=== PATIENT | male | born 1935 | race Caucasian/White ===

== ENCOUNTER 2017-06-17 07:19 | Outpatient (CLI) | payer BC ==
[~2017-06-17] VITALS: Ht 174 cm; Wt 97.5 kg
--- NOTE | ~2017-06-17 | HEMODYNAMI ---
PATIENT:NANNETTE DIMAS MEDICAL RECORD: [id number] : 37 LOCATION:[facility] D.2119 ADMISSION DATE: 06/17/17 Generatedon:06/18/20179:43 Patient name: NANNETTE DIMAS Patient #: [id number] SSN: DO B: 1935 Date of study: 06/18/2017 Page: Of Hemodynamic Procedure Report Patient Data Patient Demographics Procedure consent was obtained First Name: NANNETTE Gender: Male Last Name: JUDIE : 1935 Patient #: [id number] Age: 81 year(s) Race: Additional ID: [id number] Contact details Address: [address] [place] [address] State: [place] City: [place] Zip code: [address] Past Medical History Performed procedures and imaging results Date Procedure Procedure Results Comments 05/07/2017 Stress testing Positive->Intermediate Fixed with SPECT MPI risk Inferior apically. Allergies: No known allergies Admission Admission Data Admission Date: 06/17/2017 Admission Time: 7:19 Room #: D.2119 Lab Results Lab Result Date: 06/17/2017 Lab Result Time: 7:50 Biochemistry Name Units Result Min Max BUN mg/dl 34 --(----)-* 7 18 Creatinine mg/dl 1.4 --(----)*- 0.6 1.3 CBC Name Units Result Min Max Hematocrit % 41.8 -*(----)-- 42 54 Hemoglobin g/dl 14.7 --(-*--)-- 13.5 17.5 Procedure Procedure Types Cath Procedure PCI Procedure Coronary Stent Initial Peripheral Cath Diagnostic Procedure Cath Peripheral Jabni-Xbpkmde-Pje-Off Peripheral vascular Intervention Stent Stent Iliac w/plasty Initial Procedure Description Procedure Date Procedure Date: 06/18/2017 Procedure Start Time: 8:54 Procedure End Time: 9:41 Procedure Staff Name Function Otoniel Wan MD Performing Physician Irma Concepcion RN Nurse Mulugeta Ballard RT Scrub Catrachito Vo RT Monitor Procedure Data Cath Procedure Fluoroscopy Diagnostic fluoroscopy Total fluoroscopy Time: 8.2 time: 8.2 min min Diagnostic fluoroscopy Total fluoroscopy dose: dose: 598.96 mGy 598.96 mGy Contrast Material Contrast Material Type Amount (ml) Isovue 300 120 Entry Location Entry Primary Successful Side Size Upsize 1 Upsize Entry Closure Otrega ccessful Closure Location (Fr) (Fr) 2 (Fr) Remarks Device Remarks Femoral Right 6 Fr 6 Fr Exoseal artery Short Mid-Length Estimated blood loss: 10 ml Diagnostic catheters Device Type Used For End Catheter Placement Diagnostic Infinity 5Fr Procedure 3DRC catheter Diagnostic Infinity 5Fr Procedure Pigtail catheter Procedure Medications Medication Administration Route Dosage Lidocaine 2% added to field 20 Heparin Flush Bag added to field 2 bags (1000units/500ml NS) Oxygen NC 3 l/min 0.9% NaCl I.V. 100 ml/hr Versed I.V. 1 mg Fentanyl I.V. 50 mcg Versed I.V. 1 mg Fentanyl I.V. 50 mcg Heparin Bolus I.V. 4000 units Versed I.V. 1 mg Versed I.V. 1 mg Versed I.V. 1 mg Integrilin (Bolus I.V. 7.3 ml 2mg/ml) Morphine I.V. 2 mg Morphine I.V. 2 mg Hemodynamics Rest HGB: 14.7 (g/dl) Heart Rate: 66 (bpm) Snapshots Pre Cath Intra NCS Post Cath Vital Signs Time Heart Resp SPO2 NIBP (mmHg) Rhythm Pain Sedation Rate (ipm) (%) Status Level (bpm) 8:25:32 68 19 99 184/96(157) NSR 0 (11) 10(A) , No pain 8:29:55 77 18 100 166/97(137) NSR 0 (11) 10(A) , No pain 8:34:14 77 16 100 148/93(126) NSR 0 (11) 10(A) , No pain 8:38:30 75 16 98 149/92(138) NSR 0 (11) 10(A) , No pain 8:42:42 81 14 100 136/88(101) NSR 0 (11) 10(A) , No pain 8:47:04 83 17 99 131/79(101) NSR 0 (11) 9(A) , No pain 8:51:18 76 14 100 119/84(106) NSR 0 (11) 9(A) , No pain 8:55:28 75 21 98 121/85(107) NSR 0 (11) 9(A) , No pain 8:59:44 79 18 99 105/80(99) NSR 0 (11) 9(A) , No pain 9:03:51 79 20 99 112/80(90) NSR 0 (11) 9(A) , No pain 9:08:06 65 14 99 118/73(106) NSR 0 (11) 9(A) , No pain 9:12:20 77 18 99 122/80(111) NSR 0 (11) 9(A) , No pain 9:17:35 78 17 99 173/107(140) NSR 0 (11) 9(A) , No pain 9:22:07 77 19 99 165/107(153) NSR 0 (11) 9(A) , No pain 9:26:36 86 24 99 180/109(144) NSR 0 (11) 10(A) , No pain 9:31:10 87 16 99 176/115(137) NSR 0 (11) 10(A) , No pain 9:35:39 82 21 99 171/111(149) NSR 0 (11) 10(A) , No pain 9:40:07 85 18 99 165/109(138) NSR 0 (11) 10(A) , No pain Medications Time Medication Route Dose Verified Delivered Reason Notes Eff ectiveness by by 8:08:58 Lidocaine 2% added 20ml Irma Irma used for to vial Jamey Jamey procedure field RN RN 8:09:10 Heparin Flush added 2 Irma Irma used for Bag to bags Jamey Jamey procedure (1000units/500ml field RN RN NS) 8:24:30 Oxygen NC 3 Irma Irma used for l/min Jamey Jamey company pilot RN 8:24:41 0.9% NaCl I.V. 100 Irma Irma used for ml/hr Jamey Jamey company pilot RN 8:45:08 Versed I.V. 1 mg Irma Irma for Jamey Jamey sedation RN RN 8:45:18 Fentanyl I.V. 50 Irma Irma for mcg Jamey Jamey sedation RN RN 8:49:14 Versed I.V. 1 mg Irma Irma for Jamey Jamey sedation RN RN 8:49:18 Fentanyl I.V. 50 Irma Irma for mcg Jamey Jamey sedation RN RN 8:53:01 Versed I.V. 1 mg Irma Irma for Jamey Jamey sedation RN RN 8:57:35 Versed I.V. 1 mg Irma Irma for Jamey Jamey sedation RN RN 8:58:09 Heparin Bolus I.V. 4000 Otoniel Irma Per verified units Savage TONEY [place] physician with dr. YSABEL wan 9:02:01 Versed I.V. 1 mg Irma Irma for Jamey Jamey sedation RN RN 9:30:09 Integrilin I.V. 7.3 Irma Irma Per 2.7ml (Bolus 2mg/ml) ml [facility] physician wasted RN RN 9:30:57 Morphine I.V. 2 mg Otoniel Irma for chest Savage Concepcion pain RN 9:35:16 Morphine I.V. 2 mg Otoniel Irma for chest Savage Concepcion pain tumblers supervisor Log Time Note 8:01:47 PCI Cath Status : Elective 8:02:33 Catrachito Vo RT(R) (CV) sent for patient. Start room use. 8:02:35 Time tracking: Regular hours 8:02:43 Plan of Care:Hemodynamics will remain stable., Cardiac rhythm will remain stable., Comfort level will be maintained., Respiratory function will remain adequate., Patient/ family verbilizes understanding of procedure., Procedure tolerated without complication., Recovers from procedure without complications.. 8:08:58 Lidocaine 2% 20ml vial added to field was administered by Irma Concepcion RN; used for procedure; 8:09:10 Heparin Flush Bag (1000units/500ml NS) 2 bags added to field was administered by Irma Concepcion RN; used for procedure; 8:16:33 H&P Date Dictated: 06/17/2017 Within 30 days and on chart.. 8:16:37 Lab results completed and on chart. 8:16:55 Patient allergic to No known allergies 8:17:42 Patient received from PCU to CCL 3 Alert and oriented. Tansferred to table in Supine position. 8:17:43 Warm blankets applied, and nat hugger turned on for patient comfort. 8:17:43 Correct patient and procedure confirmed by team. 8:17:44 Signed procedure consent form obtained from patient. 8:17:45 ECG and BP/O2 sat monitors applied to patient. 8:17:47 Pre-procedure instructions explained to patient. 8:17:47 Pre-op teaching completed and patient verbalized understanding. 8:17:49 Family in patients room. 8:17:50 Patient NPO since Midnight. 8:17:52 Is the patient allergic to Iodine/contrast media? No. 8:17:53 Is patient on blood thinner?Yes 8:17:55 ACC The patient was administered the following blood thiners within the last 24 hours: ACCPlavix 8:17:58 Patient diabetic? No. 8:18:00 Previous problem with sedation/anesthesia? No ? 8:18:00 Snore? Yes 8:18:02 Sleep apnea? Yes 8:18:26 Possible Sleep apnea. Pending Sleep study. 8:18:28 Deviated septum? No 8:18:28 Opens mouth fully? Yes 8:18:29 Sticks out tongue? Yes 8:18:31 Airway obstruction? No ? 8:18:32 Dentures? No ? 8:18:34 Patient pain scale 0/10 ?. 8:18:40 IV patent on arrival in left hand with 0.9% NaCl at O. 8:24:18 Vital chart was started 8:24:30 Oxygen 3 l/min NC was administered by Irma Concepcion RN; used for procedure; 8:24:41 0.9% NaCl 100 ml/hr I.V. was administered by Irma Concepcion RN; used for procedure; 8:27:59 Right groin area was prepped with chlora-prep and draped in sterile fashion 8:28:01 Alarms reviewed by R. N. 8:28:04 Sharps counted by scrub and verified by R.N. 8:31:05 Physician arrived 8:34:54 DR. WAN IN ROOM 2 8:37:29 Pre procedure: right dorsailis pedis pulse 1+ Palpable, but thready & weak; easily obliterated 8:40:06 Baseline sample Acquired. 8:40:12 Baseline sample Acquired. 8:40:16 Rhythm: sinus rhythm 8:40:18 Zero performed for pressure channel P1 8:40:22 Zero performed for pressure channel P1 8:40:48 Zero performed for pressure channel P1 8:40:50 Zero performed for pressure channel P1 8:40:53 Zero performed for pressure channel P1 8:40:57 Zero performed for pressure channel P1 8:41:13 Full Disclosure recording started 8:41:24 Baseline sample Acquired. 8:44:33 --------ALL STOP TIME OUT------ 8:44:34 Final Timeout: patient, procedure, and site verified with staff and physician. All members of the team are in agreement. 8:44:36 Right groin site verified by team. 8:44:40 Physical assessment completed. ASA score P 2 - A patient with mild systemic disease as per Otoniel Wan MD. 8:44:44 Sedation plan: IV Moderate Sedation Versed, Fentanyl 8:45:08 Versed 1 mg I.V. was administered by Irma Concepcion RN; for sedation; 8:45:18 Fentanyl 50 mcg I.V. was administered by Irma Clearyor RN; for sedation; 8:49:14 Versed 1 mg I.V. was administered by Irma Clearyor RN; for sedation; 8:49:18 Fentanyl 50 mcg I.V. was administered by Irma Concepcion RN; for sedation; 8:53:01 Versed 1 mg I.V. was administered by Irma Concepcion RN; for sedation; 8:54:29 Use device set Femoral Dx 8:54:31 Acist Syringe opened to sterile field. 8:54:32 Bag Decanter opened to sterile field. 8:54:36 Medline Cath Pack opened to sterile field. 8:54:38 St Roby 260cm J .035 wire opened to sterile field. 8:54:39 Acist Hand Control opened to sterile field. 8:54:40 Acist Manifold opened to sterile field. 8:54:43 Tegaderm 4 x 4 opened to sterile field. 8:54:51 Procedure started. 8:54:58 Local anesthetic to right femoral artery with Lidocaine 2% by Otoniel Wan MD.INITIAL ACCESS ONLY 8:55:19 Grant BasixCompak Inflation Kit opened to sterile field. 8:55:20 Gruber Whisper J 300cm 0.014 guide wire opened to sterile field. 8:55:32 Cordis 6FR XBLAD 4.0 guide catheter opened to sterile field. 8:56:19 A 6 Fr Short sheath was inserted into the Right Femoral artery 8:56:42 TROUBLE ADVANCING J WIRE, TERUMO GLIDE OPENED AND ADVANCED 8:57:17 Terumo Super Stiff Angled 260cm glide wire opened to sterile field. 8:57:34 A Diagnostic Infinity 5Fr 3DRC catheter was advanced over the wire and used for Procedure. 8:57:35 Versed 1 mg I.V. was administered by Irma Concepcion RN; for sedation; 8:58:09 Heparin Bolus 4000 units I.V. was administered by Irma Concepcion RN; Per physician; verified with dr. wan 8:58:58 WIRE PASSED 8:59:06 Catheter removed. 8:59:16 6 Fr XBLAD 4 guide catheter was inserted over the wire 9:01:17 WHISPER wire advanced. 9:01:33 Wire advanced across lesion. 9:02:01 Versed 1 mg I.V. was administered by Irma Concepcion RN; for sedation; 9:03:24 Inflation number: 1 A Mozec Rx 3.5 x 14 balloon was prepped and advanced across the Prox CX, then inflated to 11 BLANCA for 0:10 (min:sec). 9:04:16 Balloon removed over the wire. 9:06:05 Inflation Number: 2 A Ogden OTW 3.0 x 08 stent was prepped and advanced across the Prox CX. The stent was deployed at 21 BLANCA for 0:10 (min:sec). 9:06:27 Stent catheter was removed intact over wire. 9:06:28 Wire removed. 9:06:29 Guide catheter removed. 9:08:10 Sheath upsized to a 6 Fr Mid-Length. 9:10:48 Cordis 6Fr Brite Tip 35cm Sheath opened to sterile field. 9:10:54 A Diagnostic Infinity 5Fr Pigtail catheter was advanced over the wire and used for Procedure. 9:11:25 Abdominal Aortagram was performed. 9:11:58 Left leg runoff performed. 9:12:25 Right leg runoff performed. 9:12:42 ILIAC DISEASE 9:12:57 Catheter removed. 9:15:54 Procedure type changed to Cath procedure, PCI procedure, Coronary Stent Initial, Peripheral Cath Diagnostic Procedure, Cath Peripheral, Qaqgp-Sisfxqb-Vsn-Off, Peripheral vascular Intervention, Stent, Stent Iliac w/plasty Initial 9:17:44 Inflation number: 1 A Cordis Powerflex Pro 7.0 x 20 x 135 cm balloon was prepped and advanced across the Mid Common Iliac, Right, then inflated to 9 BLANCA for 0:10 (min:sec). 9:17:49 Balloon removed over the wire. 9:19:01 Inflation Number: 2 A Cordis Sarahy 6 x 29 x 135 stent was prepped and advanced across the Mid Common Iliac, Right. The stent was deployed at 11 BLANCA for 0:10 (min:sec). 9:20:02 Stent catheter was removed intact over wire. 9:20:06 Wire removed. 9:20:55 Cordis 6Fr Exoseal opened to sterile field. 9:21:07 Sheath removed intact; hemostasis achieved with Exoseal to the Right Femoral artery. 9:21:11 Procedure ended.(Physican Out) 9:21:24 Fluoroscopy time 08.20 minutes. 9:21:34 Flurop Dose total: 598.96 9:21:34 Fluoroscopy dose: 598.96 mGy 9:21:40 Contrast amount:Isovue 300 120ml. 9:21:42 Sharps counted by scrub and verified by R.N. 9:24:16 Insertion/operative site no bleeding no hematoma. 9:24:20 Post-op/insertion site Right Femoral artery dressed using a 4 x 4 and Tegaderm. 9:24:39 Post right femoral artery:stable 9:27:[address] ELEVATION IN LEAD 1, DR. WAN NOTIFIED 9:30:09 Integrilin (Bolus 2mg/ml) 7.3 ml I.V. was administered by Irma Concepcion RN; Per physician; 2.7ml wasted 9:30:57 Morphine 2 mg I.V. was administered by Irma Concepcion RN; for chest pain; 9:31:44 Post Procedure Pulses reassessed and unchanged 9:31:54 Post-procedure physical assessment completed. ASA score P 2 - A patient with mild systemic disease as per Otoniel Wan MD. 9:35:16 Morphine 2 mg I.V. was administered by Irma Concepcion RN; for chest pain; 9:39:40 Estimated blood loss: 10 ml 9:39:59 Procedure and supply charges have been captured, reviewed, submitted and are correct. 9:41:34 Post procedure instruction explained to patient.Patient verbalizes understanding. 9:41:34 Patient needs reinforcement of post procedure teaching. 9:41:39 Vital chart was stopped 9:41:40 See physician's report for complete and final results. 9:41:43 Report given to PCU. 9:41:49 Patient transfered to PCU with Bed. 9:41:52 Procedure ended. 9:41:52 Full Disclosure recording stopped 9:41:57 End room use (Document Last) Intervention Summary Intervention Notes Time ActionType Lesion and Equipment Action# Pressure Duration Attributes Used 9:03:24 Inflate Prox CX Mozec Rx 1 11 00:10 balloon 3.5 x 14 balloon 9:06:05 Place stent Prox CX Ogden OTW 2 21 00:10 3.0 x 08 stent 9:17:44 Inflate Mid Common Cordis 1 9 00:10 balloon Iliac, Powerflex Right Pro 7.0 x 20 x 135 cm balloon 9:19:01 Place stent Mid Common Cordis 2 11 00:10 Iliac, Sarahy 6 Right x 29 x 135 stent Device Usage Item Name Manufacture Quantity Catalog Hospital Part Current Mini [facility] Lot# / Number Charge Number Stock Stock Serial# Code Acist Acist 1 82024 [id number] 323052 662679 20 Syringe [employer] Inc Bag Microtek 1 2001S 526666 11361 086015 5 Decanter [employer] Inc. Medline Cardinal 1 [id number] 329817 05416 240870 [address] [facility] [address] [facility] [address] Roby 1 094799 657152 613356 452323 30 260cm J .035 wire Acist Hand Acist 1 83291 528707 560416 010343 5 Control Medical Systems Inc Acist Acist 1 02486 648763 795636 646341 5 Manifold Medical Systems Inc Tegaderm 4 3M 1 1626W 067144 094473 099927 5 x 4 Merit Merit 1 PU2686 427373 388008 606818 15 [email or web address] Medical Inflation Kit Gruber Gruber 1 [id number] 162040 740001 165250 5 Whisper J Vascular 300cm 0.014 guide wire Cordis 6FR Cardinal 1 [id number] 380127 588893 630908 3 XBLAD 4.0 Health guide catheter Terumo Terumo 1 GT4896 687819 809332 144871 5 Super Stiff Angled 260cm glide wire Diagnostic Cardinal 1 [id number] 514206 422552 632000 9 Inspiration Biopharmaceuticalsity Health 5Fr 3DRC catheter Mozec Rx Cardinal 1 [id number] 612990 [id number] 245418 5 3.5 x 14 Health balloon Aaron OTW Medtronic 1 [id number] 561379 0393028 227847 5 [id number] 3.0 x 08 stent Cordis 6Fr Cardinal 1 [id number] 389582 351869 335744 1 Brite Tip Health 35cm Sheath Diagnostic Cardinal 1 [id number] 024526 752869 798296 5 Inspiration Biopharmaceuticalsity Health 5Fr Pigtail catheter Cordis Cardinal 1 [id number] 769970 122633 865993 5 Powerflex Health Pro 7.0 x 20 x 135 cm balloon Cordis Cardinal 1 [id number] 434098 028643 5 [id number] Sarahy 6 x Health 29 x 135 stent Cordis 6Fr Cardinal 1 EX600 622911 567324 824803 10 [facility] Health Signature Audit Grant Stage Time Signature Unsigned Intra-Procedure 06/18/2017 Catrachito Vo 9:42:53 AM RT(R) (CV) Signatures Monitor : Catrachito Vo RT Signature : Date : Time : [facility] [address] [place] [address]
--- NOTE | ~2017-06-17 | OP ---
PATIENT NAME: NANNETTE DIMAS MEDICAL RECORD: [id number] :37 LOCATION:D.M2 D.2119 ADMISSION DATE: SURGEON: LES EDWARDS MD DATE OF OPERATION: 06/18/2017 PROCEDURES: 1. PTCA stent left circumflex. 2. Selective coronary angiography. INDICATION: Angina and coronary artery disease. PROCEDURE IN DETAIL: After informed consent was obtained and after a detailed explanation of risks, benefits as well as alternative therapies, the patient elected to proceed with angiogram and angioplasty. The right femoral area had a preexisting sheath from peripheral intervention. All catheters exchanged through this sheath. FINDINGS: The left circumflex has a 90% stenosis proximally. This was addressed with a 3.0 x 8 mm [place] stent taken to 21 atmospheres. Result was 0% residual stenosis. OVERALL IMPRESSION: Successful percutaneous transluminal coronary angioplasty stent of the left circumflex going from 90% initial stenosis to 0% residual stenosis. TRANSINT:[id number] Voice Confirmation ID: [id number] DOCUMENT ID: [id number] LES EDWARDS MD CC: [id number] DICTATION DATE: 06/18/17930 NURSE COMPANION: 06/18/17940 REG [facility] [address] [place] [address]
--- NOTE | ~2017-06-17 | OP ---
PATIENT NAME: NANNETTE DIMAS MEDICAL RECORD: [id number] :36 LOCATION:D.M2 D.2119 ADMISSION DATE: SURGEON: LES EDWARDS MD DATE OF OPERATION: 06/18/2017 PROCEDURES: 1. Stent placement, iliac, right. 2. LEACH TANK TENDER, iliac, right. 3. Aortofemoral runoff. 4. Abdominal aortography. INDICATIONS: Claudication and peripheral vascular disease. PROCEDURE IN DETAIL: After informed consent was obtained and after detailed explanation of risks, benefits as well as alternative therapies, the patient elected to proceed with angiogram and angioplasty. The right femoral area was prepped and draped in normal sterile fashion. Right femoral artery was cannulated via modified Seldinger technique with placement of 6-Georgian sheath. All catheters exchanged through this sheath. FINDINGS: The abdominal aortography was performed. The catheter was pulled down for aortofemoral runoff. Abdominal aortography reveals no significant abdominal aortic disease. No dissection or aneurysm formation. No renal artery stenosis. RIGHT LEG: A. Iliac. The common iliac is widely patent. The external iliac has 75+ percent stenosis that is heavily calcified in the proximal vessel. The internal iliac is overall patent. B. Femoral system: The common superficial and deep femoral have nfap-dd-lwrkhnvg irregularities, but no flow-limiting stenosis. Overall patent. C. Popliteal and infrapopliteal vessels are patent with good 3-vessel runoff to the foot. LEFT LEG: A. Iliac: The common internal and external iliacs have uoew-eh-zfbnnlgp irregularities, but no flow-limiting stenosis. B. Femoral system: The common superficial and deep femoral have nsai-sf-zgqiofcg irregularities, but no flow-limiting stenosis. C. Popliteal and infrapopliteal vessels are widely patent with good 3-vessel runoff to the foot, although mildly diffusely diseased. LEACH TANK TENDER STENT OF THE RIGHT ILIAC: The balloon used was a 7 x 20 balloon which yielded suboptimal result with continued greater than 70% residual stenosis. Stenting was undertaken with a 7 x 29 Cordis Sarahy. Result was 0% residual stenosis. OVERALL IMPRESSION: Successful LEACH TANK TENDER stent of the right iliac going from 75% initial stenosis to 0% residual stenosis. TRANSINT:[id number] Voice Confirmation ID: [id number] DOCUMENT ID: [id number] OPERATIVE REPORT [id number] NANNETTE DIMAS LES EDWARDS MD CC: [id number] DICTATION DATE: 06/18/17929 [place]: 06/18/1751 REG [facility] [address] [place] [id number]
--- NOTE | ~2017-06-17 | OP ---
PATIENT NAME: NANNETTE DIMAS MEDICAL RECORD: [id number] :37 LOCATION:D.CAT ADMISSION DATE: SURGEON: LES EDWARDS MD DATE OF OPERATION: 06/17/2017 PROCEDURES: 1. PTCA stent LAD. 2. Left heart catheterization. 3. Selective coronary angiography. 4. Left ventriculogram. INDICATION: Angina and coronary artery disease. PROCEDURE IN DETAIL: After informed consent was obtained and after detailed explanation of risks, benefits as well as alternative therapies, the patient elected to proceed with angiogram and angioplasty. The right radial area was prepped and draped in normal sterile fashion. Right radial artery was cannulated via modified Seldinger technique with placement of 6-Maori sheath. All catheters exchanged through this sheath. FINDINGS: Left ventriculogram was performed in the standard 30-degree VIGIL view, reveals good cardiac wall motion throughout all segments. Overall ejection fraction estimated at 55%. SELECTIVE CORONARY ANGIOGRAPHY: 1. Left main is with no significant angiographic disease. 2. Left anterior descending has 85%-90% stenosis proximally. 3. Left circumflex has 90% stenosis proximally. 4. Right coronary is chronically totally occluded, distal vessel is diffusely diseased, nongraftable, it does fill via rxvp-fv-lvszn collaterals. PTCA STENT OF THE LAD: The stent used was a 3.0 x 22 mm [place]. Post-stent dilatation was made with a 3.5 balloon to 21 atmospheres. Result was 0% residual stenosis. OVERALL IMPRESSION: Successful percutaneous transluminal coronary angioplasty stent of the left anterior descending going from 90% initial stenosis to 0% residual stenosis. PLAN: PTCA stent of the left circumflex in the near future. TRANSINT:[id number] Voice Confirmation ID: [id number] DOCUMENT ID: [id number] LES EDWARDS MD CC: [id number] DICTATION DATE: 06/17/17922 MANAGEMENT ANALYST: 06/17/17936 [facility] [address] [place] [address]
--- NOTE | ~2017-06-17 | HP ---
PATIENT: NANNETTE DIMAS MEDICAL RECORD: [id number] ACCOUNT: [id number] LOCATION:MARY : 36 ADMISSION DATE: 06/17/17 HISTORY AND PHYSICAL EXAMINATION ADMITTING DIAGNOSES: 1. Angina. 2. Hypertension. 3. Family history of coronary artery disease. 4. Shortness of breath, dyspnea on exertion. HISTORY OF PRESENT ILLNESS: Mr. Dimas has had progressive anginal chest discomfort as well as shortness of breath, dyspnea on exertion. I actually never did a stress test on him. Nuclear stress test was performed, this was abnormal with inducible ischemia. He is now brought for cardiac catheterization. PHYSICAL EXAMINATION: GENERAL APPEARANCE: Well-nourished, well-developed, appears stated age. Level of distress, comfortable. PSYCHIATRIC: Mental status, alert, normal affect. Orientation, oriented to time, place and person. EYES: Lids and conjunctiva, noninjected. No discharge, no pallor. ENT: Lips, teeth, gums, normal dentition. Oropharynx, no cyanosis, no pallor. NECK: Carotid arteries, bilateral normal upstroke, no bruits, no thrills. JUGULAR VEINS: No jugular venous pressure or distention. CERVICAL LYMPH NODES: Nontender, nonenlarged. THYROID: Not enlarged. Nontender. No nodules. LUNGS: Respiratory effort, unlabored. CHEST: Normal curvature. No thoracic deformity. No chest wall tenderness. Percussion, resonant. Auscultation, clear. No wheezes, no rales, no rhonchi. CARDIOVASCULAR: Precordial exam, nondisplaced. No heaves or pericardial thrills. Rate and rhythm, regular. Heart sounds, normal S1, normal S2. No S3, no gallop, no rub. Systolic murmur, not heard. Diastolic murmur, not heard. EXTREMITIES: No cyanosis, no edema. Peripheral pulses, full and equal in all extremities, except as noted. No bruits appreciated. ABDOMEN: Soft, nondistended. Normal aorta. No bruit. Nontender. No masses. Liver, nontender, no hepatomegaly. Spleen, nontender, no splenomegaly. MUSCULOSKELETAL: No joint tenderness. No joint swelling. No erythema. NEUROLOGICAL: Normal gait, normal strength, normal tone. SKIN: Warm and dry. REVIEW OF SYSTEMS: The patient reports easy bruising but reports no swollen glands. The patient reports no fever, no night sweats, no significant weight gain, no significant weight loss. No significant exercise tolerance. The patient reports no dry eyes, no irritation, no vision change. Patient reports no difficulty hearing and no ear pain. Patient reports no frequent nose bleeds or nose and sinus problems. Patient reports on arm pain on exertion. No shortness of breath while lying down. No history of heart murmur. Patient reports no cough, no wheezing or coughing up blood. Patient reports no abdominal pain, no vomiting. Normal appetite. No diarrhea and not vomiting blood. No nausea and no constipation. Patient reports no incontinence. No difficulty urinating. No hematuria. No increased frequency. Patient reports no muscle aches. No weakness, no arthralgias, no back pain. No swelling of the extremities. Patient reports no abnormal mole, no jaundice, no rashes. Reports HISTORY AND PHYSICAL [id number] NANNETTE DIMAS no loss of consciousness. No weakness and no numbness. No seizures, dizziness, or headaches. The patient reports no depression, no sleep disturbance, feeling safe in a relationship and no alcohol abuse. Patient reports on fatigue. Reports no runny nose or sinus pressure. No itching, no hives, and no frequent sneezing. OVERALL IMPRESSION: Increasing anginal chest discomfort with abnormal nuclear stress test. He has a high likelihood of hemodynamically significant coronary artery disease. We will proceed with coronary angiography. Further care depends upon findings of the angiography. TRANSINT:[id number] Voice Confirmation ID: [id number] DOCUMENT ID: [id number] LES EDWARDS MD CC: [id number] DICTATION DATE: 06/17/17854 SUPERINTENDENT HORTICULTURE: 06/17/17919 [facility] [address] [place] [address]
--- NOTE | ~2017-06-17 | HEMODYNAMI ---
PATIENT:NANNETTE DIMAS MEDICAL RECORD: [id number] : 37 LOCATION:[facility] ADMISSION DATE: 06/17/17 Generatedon:06/17/20179:22 Patient name: NANNETTE DIMAS Patient #: [id number] SSN: DO B: 1935 Date of study: 06/17/2017 Page: Of Hemodynamic Procedure Report Patient Data Patient Demographics Procedure consent was obtained First Name: NANNETTE Gender: Male Last Name: JUDIE : 1935 Patient #: [id number] Age: 81 year(s) Race: Unknown Additional ID: [id number] Contact details [address]: [address] [place] [address] State: [place] City: [place] Zip code: [address] Past Medical History Performed procedures and imaging results Date Procedure Procedure Results Comments 05/07/2017 Stress testing Positive->Intermediate Fixed with SPECT MPI risk Inferior apically. Allergies: No known allergies Admission Admission Data Admission Date: 06/17/2017 Admission Time: 7:19 Lab Results Lab Result Date: 06/17/2017 Lab Result Time: 7:50 Biochemistry Name Units Result Min Max BUN mg/dl 34 --(----)-* 7 18 Creatinine mg/dl 1.4 --(----)*- 0.6 1.3 CBC Name Units Result Min Max Hematocrit % 41.8 -*(----)-- 42 54 Hemoglobin g/dl 14.7 --(-*--)-- 13.5 17.5 Procedure Procedure Types Cath Procedure Diagnostic Procedure LHC LHC w/Coronaries PCI Procedure Coronary Stent Initial Miscellaneous Procedures Moderate Sedation up to 30 minutes Procedure Description Procedure Date Procedure Date: 06/17/2017 Procedure Start Time: 9:01 Procedure End Time: 9:20 Procedure Staff Name Function Otoniel Wan MD Performing Physician Becky Moura RT Scrub Noah Worrell RT Scrub Anthony Davis RN Nurse Mluugeta Ballard RT Monitor Procedure Data Cath Procedure Fluoroscopy Diagnostic fluoroscopy Total fluoroscopy Time: 5.2 time: 5.2 min min Diagnostic fluoroscopy Total fluoroscopy dose: dose: 1029 mGy 1029 mGy Contrast Material Contrast Material Type Amount (ml) Isovue 300 124 Entry Location Entry Primary Successful Side Size Upsize Upsize Entry Closure Ortega ccessful Closure Location (Fr) 1 (Fr) 2 (Fr) Remarks Device Remarks Radial Right 6 Fr Mechanical artery Short Compression Estimated blood loss: 10 ml Diagnostic catheters Device Type Used For End Catheter Placement Diagnostic Terumo 5Fr Procedure [place] 110cm catheter Procedure Complications No complications Procedure Medications Medication Administration Route Dosage Oxygen NC 2 l/min Lidocaine 2% added to field 20 Heparin Flush Bag added to field 2 bags (1000units/500ml NS) 0.9% NaCl I.V. 100 ml/hr Versed I.V. 1 mg Fentanyl I.V. 50 mcg Versed I.V. 1 mg Fentanyl I.V. 50 mcg Radial Cocktail I.A. 1 syringe (Verapomil 2mg/Nitro 400mcg/Heparin 1500units) Heparin Bolus I.V. 4000 units Integrilin (Bolus I.V. 8.5 ml 2mg/ml) Plavix P.O. 600 mg Hemodynamics Rest HGB: 14.7 (g/dl) Heart Rate: 75 (bpm) Snapshots Pre Cath Intra NCS Post Cath Vital Signs Time Heart Resp SPO2 etCO2 LF7deya NIBP (mmHg) Rhythm Pain Sedation Rate (ipm) (%) (mmHg) (mmHg) Status Level (bpm) 8:51:02 75 20 100 0 0 125/78(115) NSR 0 (11) 10(A) , No pain 8:55:14 73 18 97 0 0 120/70(102) NSR 0 (11) 10(A) , No pain 8:59:22 71 17 97 0 0 113/80(99) NSR 0 (11) 10(A) , No pain 9:03:30 72 17 100 0 0 112/72(91) NSR 0 (11) 9(A) , No pain 9:07:38 73 17 97 0 0 105/67(89) NSR 0 (11) 9(A) , No pain 9:11:41 72 21 96 0 0 103/73(92) NSR 0 (11) 9(A) , No pain 9:15:47 72 15 99 0 0 107/66(80) NSR 0 (11) 9(A) , No pain 9:19:55 71 15 99 0 0 112/62(95) NSR 0 (11) 10(A) , No pain Medications Time Medication Route Dose Verified Delivered Reason Notes Effectiveness by by 8:53:08 Oxygen NC 2 l/min Otoniel Buffie used for Savage Davis RN procedure 8:53:15 Lidocaine 2% added 20ml Otoniel Buffie used for to vial Svaage Davis RN procedure field 8:53:22 Heparin Flush added 2 bags Otoniel Buffie used for Bag to Savage Davis RN procedure (1000units/500ml field NS) 8:53:32 0.9% NaCl I.V. 100 Otoniel Buffie Per physician ml/hr Savage Davis RN 8:56:09 Versed I.V. 1 mg Otoniel Cruz for sedation Savage Davis RN 8:56:15 Fentanyl I.V. 50 mcg Otoniel Cruz for sedation Savage Davis RN 9:02:44 Versed I.V. 1 mg Otoniel Cruz for sedation Savage Davis RN 9:02:48 Fentanyl I.V. 50 mcg Otoniel Cruz for sedation Savage Davis RN 9:02:55 Radial Cocktail I.A. 1 Otoniel Frederick for (Verapomil syringe Tauuziel Wan MD vasodilation 2mg/Nitro 400mcg/Heparin 1500units) 9:08:43 Heparin Bolus I.V. 4000 Otoniel Cruz for verif ied units Savage Davis RN anticoagulation with dr wan 9:10:45 Integrilin I.V. 8.5 ml Otoniel Cruz for waste d (Bolus 2mg/ml) Savage Davis RN antiplatelet 1.5 ml therapy of vial 9:20:52 Plavix P.O. 600 mg Otoniel Cruz for Savage Davis RN antiplatelet therapy Procedure Log Time Note 8:18:45 Informed consent obtained and on chart 8:19:09 Diagnostic Cath status Elective 8:19:11 Mulugeta MCADAMS(R) sent for patient. Start room use. 8:19:12 Time tracking: Regular hours 8:19:16 Plan of Care:Hemodynamics will remain stable., Cardiac rhythm will remain stable., Comfort level will be maintained., Respiratory function will remain adequate., Patient/ family verbilizes understanding of procedure., Procedure tolerated without complication., Recovers from procedure without complications.. 8:37:23 Patient received from Pre/Post Procedure Room to CCL 1 Alert and oriented. Tansferred to table in Supine position. 8:37:24 Warm blankets applied, and nat hugger turned on for patient comfort. 8:37:25 Correct patient and procedure confirmed by team. 8:37:25 ECG and BP/O2 sat monitors applied to patient. 8:50:00 Vital chart was started 8:50:02 Baseline sample Acquired. 8:50:06 Rhythm: sinus rhythm 8:50:08 Full Disclosure recording started 8:50:31 H&P Date Dictated: 06/17/2017 New H&P dictated by physician.. 8:51:15 Pre-procedure instructions explained to patient. 8:51:16 Pre-op teaching completed and patient verbalized understanding. 8:51:19 Family in waiting room. 8:51:20 Patient NPO since Midnight. 8:51:25 Patient allergic to No known allergies 8:51:27 Is the patient allergic to Iodine/contrast media? No. 8:51:28 Is patient on blood thinner?No 8:51:29 Patient diabetic? No. 8:51:32 Previous problem with sedation/anesthesia? No ? 8:51:34 Snore? Yes 8:51:35 Sleep apnea? Possible. Pending Sleep Study 8:51:55 Deviated septum? No 8:51:55 Opens mouth fully? Yes 8:51:56 Sticks out tongue? Yes 8:51:58 Airway obstruction? No ? 8:52:00 Dentures? No ? 8:52:01 Modified John's test Ulnar < 7 seconds 8:52:04 Patient pain scale 0/10 ?. 8:52:11 IV patent on arrival in left hand with 0.9% NaCl at [facility]. 8:52:53 Lab Result : BUN 34 mg/dl 8:52:53 Lab Result : Hemoglobin 14.7 g/dl 8:52:53 Lab Result : Creatinine 1.4 mg/dl 8:52:53 Lab Result : Hematocrit 41.8 % 8:52:55 Lab results completed and on chart. 8:52:58 Right Radial & Right Groin area was prepped with chlora-prep and draped in sterile fashion 8:52:59 Alarms reviewed by R. N. 8:53:00 Sharps counted by scrub and verified by R.N. 8:53:03 Use device set Radial Dx 8:53:04 MBrace Wrist Support opened to sterile field. 8:53:04 Tegaderm 4 x 4 opened to sterile field. 8:53:05 Acist Syringe opened to sterile field. 8:53:06 Medline Cath Pack opened to sterile field. 8:53:07 Bag Decanter opened to sterile field. 8:53:08 Oxygen 2 l/min NC was administered by Anthony Davis RN; used for procedure; 8:53:08 Acist Manifold opened to sterile field. 8:53:08 Acist Hand Control opened to sterile field. 8:53:09 St Roby 260cm J .035 wire opened to sterile field. 8:53:09 Terumo 6Fr Slender Glidesheath opened to sterile field. 8:53:15 Lidocaine 2% 20ml vial added to field was administered by Anthony Davis RN; used for procedure; 8:53:22 Heparin Flush Bag (1000units/500ml NS) 2 bags added to field was administered by Anthony Davis RN; used for procedure; 8:53:32 0.9% NaCl 100 ml/hr I.V. was administered by Anthony Davis RN; Per physician; 8:55:08 Physician arrived 8:55:09 --------ALL STOP TIME OUT------ 8:55:09 Final Timeout: patient, procedure, and site verified with staff and physician. All members of the team are in agreement. 8:55:11 Right Radial & Right Groin site verified by team. 8:55:13 Physical assessment completed. ASA score P 2 - A patient with mild systemic disease as per Otoniel Wan MD. 8:55:17 Sedation plan: IV Moderate Sedation Versed, Fentanyl 8:56:09 Versed 1 mg I.V. was administered by Anthony Davis RN; for sedation; 8:56:15 Fentanyl 50 mcg I.V. was administered by Anthony Davis RN; for sedation; 8:56:27 Zero performed for pressure channel P1 8:56:30 Zero performed for pressure channel P1 9:01:37 Procedure started. 9:01:40 Local anesthetic to right radial artery with Lidocaine 2% by Otoniel Wan MD.INITIAL ACCESS ONLY 9:01:47 A 6 Fr Short sheath was inserted into the Right Radial artery 9::44 Versed 1 mg I.V. was administered by Anthony Davis RN; for sedation; 9::48 Fentanyl 50 mcg I.V. was administered by Anthony Davis RN; for sedation; 9::55 Radial Cocktail (Verapomil 2mg/Nitro 400mcg/Heparin 1500units) 1 syringe I.A. was administered by Otoniel Wan MD; for vasodilation; 9:05:03 A Diagnostic [place] Homesumo 5Fr [place] 110cm catheter was advanced over the wire and used for Procedure. 9::34 LV gram done using VIGIL 9::36 Injector settings: Ml/sec: 5, Volume: 15, 9:05:41 EF : 55 % 9:05:58 LCA angiography performed. 9:07:11 RCA angiography performed. 9:07:24 Gruber VisEn Medicalisper J 300cm 0.014 guide wire opened to sterile field. 9:07:25 Enterra FeedixCompak Inflation Kit opened to sterile field. 9:07:25 Cordis 6FR XBLAD 3.5 guide catheter opened to sterile field. 9:07:27 Catheter removed. 9::40 6 Fr xblad 3.5 guide catheter was inserted over the wire 9::43 Heparin Bolus 4000 units I.V. was administered by Anthony Davis RN; for anticoagulation; verified with dr wan 9::40 LCA angiography performed. 9:09:50 whisper wire advanced. 9::45 Integrilin (Bolus 2mg/ml) 8.5 ml I.V. was administered by Anthony Davis RN; for antiplatelet therapy; wasted 1.5 ml of vial 9:11:07 Wire advanced across lesion. 9:12:19 Inflation number: 1 A Mozec Rx 3.0 x 14 balloon was prepped and advanced across the Mid LAD, then inflated to 11 BLANCA for 0:10 (min:sec). 9:12:41 Inflation number: 2 The Mozec Rx 3.0 x 14 balloon was reinflated across the Mid LAD, to 11 BLANCA for 0:10 (min:sec). 9::44 Balloon removed over the wire. 9:14:43 Inflation Number: 3 A Aaron OTW 3.0 x 22 stent was prepped and advanced across the Mid LAD. The stent was deployed at 19 BLANCA for 0:10 (min:sec). 9:14:53 Stent catheter was removed intact over wire. 9:16:53 Inflation number: 4 A NC Euphora 3.5 x 12 balloon was prepped and advanced across the Mid LAD, then inflated to 21 BLANCA for 0:10 (min:sec). 9:17:22 Balloon removed over the wire. 9:17:26 Wire removed. 9:17:26 Guide catheter removed. 9:17:56 Terumo TR Band Standard opened to sterile field. 9:18:02 Sheath removed intact; hemostasis achieved with Mechanical Compression to the Right Radial artery. 9:18:03 Procedure ended.(Physican Out) 9:18:11 Fluoroscopy time 05.20 minutes. 9:18:14 Flurop Dose total: 1029 9:18:14 Fluoroscopy dose: 1029 mGy 9:18:18 Contrast amount:Isovue 300 124ml. 9:18:19 Sharps counted by scrub and verified by R.N. 9:18:21 TR band inflated with 10cc of air. 9:18:22 Insertion/operative site no bleeding no hematoma. 9:18:29 Post right radial artery:stable, soft, clean and dry 9:18:31 Post Procedure Pulses reassessed and unchanged 9:18:34 Post-procedure physical assessment completed. ASA score P 2 - A patient with mild systemic disease as per Otoniel Wan MD. 9:18:37 Post procedure rhythm: unchanged. 9:18:39 Estimated blood loss: 10 ml 9:18:40 Post procedure instruction explained to patient.Patient verbalizes understanding. 9:18:41 Patient needs reinforcement of post procedure teaching. 9:18:53 Procedure type changed to Cath procedure, Diagnostic procedure, LHC, LHC w/Coronaries, PCI procedure, Coronary Stent Initial, Miscellaneous Procedures, Moderate Sedation up to 30 minutes 9:19:34 Procedure and supply charges have been captured, reviewed, submitted and are correct. 9:19:37 Procedure Complication : No complications 9:20:00 Vital chart was stopped 9:20:00 See physician's report for complete and final results. 9:20:02 Report given to PCU. 9:20:04 Patient transfered to PCU with Stretcher. 9:20:07 Procedure ended. 9:20:07 Full Disclosure recording stopped 9:20:33 End room use (Document Last) 9:20:52 Plavix 600 mg P.O. was administered by Anthony Davis RN; for antiplatelet therapy; Intervention Summary Intervention Notes Time ActionType Lesion and Equipment Action# Pressure Duration Attributes Used 9:12:19 Inflate Mid LAD Mozec Rx 1 11 00:10 balloon 3.0 x 14 balloon 9:12:41 Reinflate Mid LAD Mozec Rx 2 11 00:10 balloon 3.0 x 14 balloon 9:14:43 [address] stent Mid LAD Mindoro OTW 3 19 00:10 3.0 x 22 stent 9:16:53 Inflate Mid LAD NC 4 21 00:10 balloon Euphora 3.5 x 12 balloon Device Usage Item Name Manufacture Quantity Catalog Hospital Part Current Mini mal Lot# / Number Charge Number Stock Stock Serial# Code [place] [address] 140-0250-00 200272 12023 809620 5 Wrist Vascular Support Dynamics Tegaderm 4 3M 1 1626W 504600 674064 758046 5 x 4 Acist Acist 1 26534 252566 055968 353391 20 Syringe Medical Systems Inc Medline Cardinal 1 [id number] 300164 74789 606557 5 Cath Pack Health Bag Microtek 1 2002S 800440 22679 538877 5 Decanter Medical Inc. Acist Acist 1 98351 816440 687871 145723 5 Manifold Medical Systems Inc Acist Hand Acist 1 30024 928915 845944 448667 [address] Roby St Roby 1 943360 543591 718042 288902 30 260cm J .035 wire Terumo 6Fr Terumo 1 [id number] 381802 081425 261138 40 Slender Glidesheath Diagnostic Terumo 1 47-1503 930210 167322 521921 5 Terumo 5Fr [place] 110cm catheter Gruber Gruber 1 [id number] 589079 936437 438330 5 Whisper J Vascular 300cm 0.014 guide wire Merit Merit 1 HD7113 838302 986142 148909 15 Solaborate Medical Inflation Kit Cordis 6FR Cardinal 1 [id number] 642344 755072 617942 10 XBLAD 3.5 Health guide catheter Mozec Rx Cardinal 1 [id number] 208267 [id number] 689434 5 3.0 x 14 Health balloon Aaron OTW Medtronic 1 [id number] 853642 7750748 527100 5 [id number] 3.0 x 22 stent NC Euphora Medtronic 1 [id number] 629094 879536 037960 1 [id number] 3.5 x 12 balloon Terumo TR Terumo 1 [id number] 493979 780907 661031 40 Band Standard Signature Audit [place] Stage Time Signature Unsigned Intra-Procedure 06/17/2017 Mulugeta Ballard 9:22:12 AM RT(R) Signatures Monitor : Mulugeta Ballard RT Signature : Date : Time : [place] [id number] [place] [address]
[2017-06-17] MEDS ORDERED: ZESTRIL40 MG PO (07:31)
[2017-06-17] MEDS ORDERED: HYDROCHLOROTH12.5 M1 PO (07:31)
[2017-06-17 07:39] VITALS: BP 119/81; BMI 30.3
[2017-06-17 07:54] LABS: BASOPHILS 0.5 % (0-2); EOSINOPHILS 2.9 % (0-7); HEMATOCRIT 41.8 % (42.0-54.0); HEMOGLOBIN 14.7 g/dL (13.5-17.5); IMMATURE GRANULOCYTES 0.2 % (0-5); LYMPHOCYTES 28.6 % (15-50); MCH 31.9 pg (26.0-34.0); MCHC 35.2 g/dL (31.0-37.0); MCV 90.7 fL (80.0-100.0); MONOCYTES 9.4 % (2-11); NEUTROPHILS 58.4 % (40-80); PLATELET COUNT 165 10x3/uL (130-400); RBC 4.61 10x6/uL (4.20-6.10); RDW 12.9 % (11.5-14.5); WBC 5.8 10x3/uL (4.8-10.8)
[2017-06-17 08:23] LABS: ANION GAP 14.2 mmol/L (8-16); CALCIUM 8.7 mg/dL (8.5-10.1); CARBON DIOXIDE 23.8 mmol/L (21.0-32.0); CREATININE - SERUM 1.4 mg/dL (0.6-1.3)
--- NOTE | 2017-06-17 09:35 | NUR ---
REC'D PT FROM [facility] DEMONSTRATOR. 2L NC, NO RESP DISTRESS NOTED. RIGHT WRIST TR BAND CDI, NO BLEEDING OR HEMATOMA NOTED. NO C/O CHEST PAIN OR NAUSEA. VSS. INSTRUCTED PT NOT TO USE RIGHT WRIST.
--- NOTE | 2017-06-17 09:43 | NUR ---
REPORT CALLED TO NURSE ON MED II. TRANSFERRED TO ROOM 2118 VIA STRETCHER BY CATH SHOE RECONDITIONER.
--- NOTE | 2017-06-17 10:10 | NUR ---
RECEIVED PT FROM [facility]W OFFBEARER VIA BED AAOX4 RESP UNLABORED RT WRIST WITH TR BAND INTACT NO SIGNS OG BLEEDING PPP X4 TELEMETRY PLACED SR 78 VSS PT DENIES ANY NEEDS OR DISCOMFORT AT THIS TIME AT BEDSIDE
[2017-06-17 12:00] VITALS: BP 134/83
[2017-06-17 16:00] VITALS: BP 118/74
[2017-06-17 17:47] VITALS: BP 112/68; Ht 174 cm; Wt 97.5 kg
[2017-06-17 19:00] VITALS: BP 140/84
[2017-06-18 00:46] VITALS: BP 147/79
[2017-06-18 05:12] VITALS: BP 147/79
[2017-06-18 08:14] VITALS: BP 161/97
--- NOTE | 2017-06-18 10:35 | NUR ---
1015 CLONIDINE 0.1MG PO GIVEN PER DR. EDWARDS FOR SYSTOLIC BP. R GROIN REMAINS C/D/I WITH NO HEMATOMA OR BLEEDING.NSR RATE 71 W C/O CHEST PAIN. 01/20. WILL CONTINUE TO MONITOR CLOSELY.
--- NOTE | 2017-06-18 10:43 | NUR ---
R GROIN REMAINS C/D/I WITH NO HEMATOMA OR BLEEDING. NSR RATE 77. ST ELEVATION HAS DECREASED. DR. EDWARDS AT BEDSIDE.
--- NOTE | 2017-06-18 10:58 | NUR ---
PATIENT REMAINS NSR RATE 76, SYSTOLIC BP 144, CLONIDINE SEEMS TO HAVE WORKED. R GROIN REMAINS C/D/I WITH NO HEMATOMA. TRANSFERRED TO ROOM ON FLOOR VIA BED BY CATH TEAM.
--- NOTE | 2017-06-18 11:19 | NUR ---
ARRIVE BACK TO ROOM VIA BED FROM DRUG ENFORCEMENT AGENT. ALERT AND ORIENTED X4. AT BEDSIDE. COMPLAINS OF CHEST PAIN 11/22. MORPHINE GIVEN IN DRUG ENFORCEMENT AGENT HOLDING. BP-135/93, P-78, T-97.7, O2-100% WITH 2L NC. RT GROIN DRESSING CLEAN DRY INTACT. SMALL HEMATOMA NOTED. PULSES PALPABLE. CONTINUE PLAN OF CARE. BED LOCKED AND LOW. CALL LIGHT IN REACH. TWO SIDERAIL UP. REMAIN FLAT FOR 3 MORE HOURS.
[2017-06-18 12:05] VITALS: BP 135/93
[2017-06-18 16:00] VITALS: BP 110/71
--- NOTE | 2017-06-18 16:15 | NUR ---
ALERT AND ORIENTED X4. SITTING ON SIDE OF BED. COMPLAINS OF CHEST PAIN RADIATING TO BACK BETWEEN SHOULDER BLADES. SINUS RHTHYM 75bpm ON TELEMETRY. BP-121/80. DENIES SOB. STAYING OVER NIGHT TO MONITOR. PLAN TO DC TOMORROW 06/19/17. CONTINUE PLAN OF CARE. BED LOCKED AND LOW. CALL LIGHT IN REACH. DENIES ANY NEEDS AT THIS TIME.
[2017-06-18 19:00] VITALS: BP 134/80
--- NOTE | 2017-06-18 19:59 | NUR ---
RESUMED CARE OF PT, LYING IN BED RESPIRATIONS EVEN AND UNLABORED ON ROOM AIR. LEFT HAND SALINE LOCKED. 71 SR ON TELEMETRY. NO NEEDS AT THIS TIME. CALL LIGHT IN REACH. WILL CONTINUE TO MONITOR. SEE NURSE ASSESSMENT.
--- NOTE | 2017-06-19 00:30 | NUR ---
COMPLAINTS OF CHEST PAIN 5:10, 75 SR ON TELEMETRY. MORPHINE 4MG IVP GIVEN, WILL CONTINUE TO MONITOR. CALL LIGHT IN REACH.
[2017-06-19 01:15] VITALS: BP 129/81
--- NOTE | 2017-06-19 05:25 | NUR ---
LYING IN BED WITH EYES CLOSED, NO CHANGES FROM PREVIOUS ASSESSMENT.
[2017-06-19 07:00] VITALS: BP 117/78
--- NOTE | 2017-06-19 07:42 | NUR ---
ASSESSMENT DONE. DENIES NEEDS.
[2017-06-19] MEDS ORDERED: COLACE100 MG PO (10:02)
--- NOTE | 2017-06-19 11:14 | NUR ---
ASLEEP AT PRESENT. MONITOR SHOWS SR @ 90. WILL CONTINUE TO MONITOR.
[2017-06-19 12:42] VITALS: BP 126/84
[2017-06-19] MEDS ORDERED: PLAVIX75 MG PO (14:33)
[2017-06-19] MEDS ORDERED: BAYER CHEWABLE81 MG PO (14:34)
--- NOTE | 2017-06-19 15:18 | NUR ---
DC AND RX GIVEN TO PT
--- NOTE | 2017-06-19 15:21 | NUR ---
DC HOME PER PERSONALCAR
== END 2017-06-19 15:21 | disposition home or self-care (01) ==
LOC: D.M2 07:19 → D.CATH 07:19 → D.M2 09:45 → D.CLR 06-18 18:19 → D.M2 06-18 18:20 → D.CATH 06-19 15:21
PROVIDERS: Internal Medicine Interventional Cardiology
DX: I20.9 Angina pectoris, unspecified (principal); R94.30 Abnormal result of cardiovascular function study, unspecified; R06.02 Shortness of breath; Z01.812 Encounter for preprocedural laboratory examination; I70.213 Atherosclerosis of native arteries of extremities with intermittent claudication, bilateral legs

== ENCOUNTER → 2018-12-24 09:21 | Outpatient (CLI) | payer BC ==
[2017-06-17 17:47] VITALS: BMI 27.0
--- NOTE | ~2018-12-24 | ST ---
PATIENT:NANNETTE DIMAS MEDICAL RECORD: [id number] SEX: M LOCATION:[facility] ORDER #: ADMISSION DATE: 12/24/18 AGE OF PATIENT: 82 REFERRING PHYSICIAN: INTERPRETING PHYSICIAN: LES EDWARDS MD DATE OF SERVICE: 12/24/2018 Nuclear stress test. INDICATION: Angina, coronary artery disease, hypertension, shortness of breath. He was exercised on the standard Ralph protocol for 5 minutes, terminated due to achievement of maximum target heart rate response with 28 mCi of sestamibi injected at peak stress, 9 mCi used previously for rest images. FINDINGS: Gated SPECT reveals preserved ejection fraction at 52% with good wall motion and thickening and brightening throughout all segments. SPECT imaging Cardiolite was used as myocardial fusion agent. There is reversibility anteriorly and apically. This includes basal, mid apical, anterior segments as well as the apex itself. The degree of reversibility is severe. The amount of myocardium involved is moderate. OVERALL IMPRESSION: This is an abnormal nuclear stress test, a moderate amount of myocardium involved with inducible ischemia anteroapically and gated SPECT reveals preserved ejection fraction of greater than 50%. In this patient with ongoing symptomatology, the current scan does suggest presence of hemodynamically significant coronary artery disease. We would proceed with coronary angiography as followup study. TRANSINT:[id number] Voice Confirmation ID: [id number] DOCUMENT ID: [id number] LES EDWARDS MD CC: [id number] DICTATION DATE: 12/25/18 1610 MAINFRAME ANALYST: 12/26/18 0924 DEP CLI 12/24/18 [place] [id number] [place] [id number]
[~2018-12-24 09:21] MED LIST: BAYER CHEWABLE81 MG PO; COLACE100 MG PO; HYDROCHLOROTH12.5 M1 PO; PLAVIX75 MG PO; ZESTRIL40 MG PO
== END | disposition home or self-care (01) ==
LOC: D.HCCARDIO 09:21
PROVIDERS: ATTEND Internal Medicine Interventional Cardiology
DX: I20.9 Angina pectoris, unspecified (principal)

== ENCOUNTER → 2019-01-01 12:14 | Outpatient (CLI) | payer BC ==
[2017-06-17 17:47] VITALS: BMI 27.0
--- NOTE | ~2019-01-01 | EC ---
PATIENT:NANNETTE DIMAS DATE OF SERVICE: 01/01/19 SEX: M MEDICAL RECORD: [id number] DATE OF : 37 [facility] AGE OF PATIENT: 83 ADMISSION DATE: 01/01/19 REFERRING PHYSICIAN: INTERPRETING PHYSICIAN: LES WAN MD ECHOCARDIOGRAM REPORT ECHO CHARGES 4 ECHO COMPLETE Date: 01/01/19 CLINICAL DIAGNOSIS: SOB ECHOCARDIOGRAPHIC MEASUREMENTS (adult normal given) AC root (d.<3.7cm) 3.9 cm LV Septum d (<1.2 cm> 1.6 cm Valve Excursion 2.0 cm LV Septum (systole) 1.8 cm Left Atria (s.<4.0cm> 3.6 cm LVPW d(<1.2cm) 1.7 cm RV (d.<2.3cm) 4.0 cm LVPW (sytole) 1.8 cm LV diastole(<5.6CM) 5.6 cm MV E-F(>70mm/sec) cm LV systole 4.2 cm LVOT Diameter 2.0 cm MV exc.(>10mm) 1.3 cm Est.ejection fraction (50-75%) % DOPPLER: LVIT cm/sec A 90.0 cm/sec E 60.0 cm/sec LA cm/sec RVSP 42 mmHg LVOT 98 cm/sec AOP1/2T m/s Asc. Ao 123 cm/sec RVOT 71 cm/sec RA cm/sec PA 106 cm/sec AV Gradient Peak 6.07 mmHg AV Mean 2.85 mmHg AV Area 3.0 cm MV Gradient Peak 3.57 mmHg MV Mean 1.07 mmHg MV Area cm COMMENTS: Veterinary Epidemiologist: Sofy GRAVES Personal Care Service Provider: 1 Dr. Wan TAPE# PACS Pericardial Effusion N DATE OF SERVICE: 01/01/2019 PROCEDURE: Echocardiogram. FINDINGS: 1. Left ventricular chamber size is within normal limits. Left ventricular systolic function is normal. Overall ejection fraction 60% to 65%. 2. Left atrium, right atrium and right ventricular chamber sizes are within normal limits. 3. Valvular structures have normal structure and motion. ECHOCARDIOGRAM REPORT [id number] NANNETTE DIMAS 4. Doppler interrogation reveals mild aortic insufficiency, mild mitral regurgitation, mild tricuspid regurgitation, no other valvular insufficiency or stenosis. Pulmonary systolic pressure is estimated at 42 mmHg. 5. No evidence of pericardial effusion or left ventricular thrombus. TRANSINT:[id number] Voice Confirmation ID: [id number] DOCUMENT ID: [id number] LES WAN MD CC: [id number] DICTATION DATE: 01/04/19 1020 AUDIO VISUAL SPECIALIST: 01/04/19 1120 DEP CLI 01/01/19 [facility] [address] [id number]
[~2019-01-01 12:14] MED LIST changes: +PRAVACHOL40 MG PO
== END | disposition home or self-care (01) ==
LOC: D.HCCARDIO 12:14
PROVIDERS: ATTEND Internal Medicine Interventional Cardiology
DX: I25.10 Atherosclerotic heart disease of native coronary artery without angina pectoris (principal)

== ENCOUNTER 2019-01-04 08:21 | Outpatient (CLI) | payer BC ==
[~2019-01-04] VITALS: Ht 174 cm; Wt 90.9 kg
--- NOTE | ~2019-01-04 | OP ---
PATIENT NAME: NANNETTE DIMAS MEDICAL RECORD: [id number] :37 LOCATION:D.CAT ADMISSION DATE: SURGEON: LES EDWARDS MD DATE OF OPERATION: 01/04/2019 PROCEDURES: 1. PTCA stent left circumflex. 2. PTCA stent LAD. 3. Left heart catheterization. 4. Selective coronary angiography. 5. Left ventriculogram. INDICATION: Angina and coronary artery disease. PROCEDURE IN DETAIL: After informed consent was obtained and after a detailed description of the risks, benefits as well as alternative therapies, the patient elected to proceed with angiogram and angioplasty. The right radial area was prepped and draped in normal sterile fashion. Right radial artery was cannulated via modified Seldinger technique with placement of 6-Korean sheath. All catheters exchanged through this sheath. FINDINGS: Left ventriculogram was performed in standard 30-degree VIGIL view, reveals good cardiac wall motion throughout all segments. Overall ejection fraction estimated at 55% to 60%. SELECTIVE CORONARY ANGIOGRAPHY: 1. Left main showed no significant angiographic disease. 2. Left anterior descending has a previously placed stent with 90% in-stent restenosis. 3. Left circumflex has 75% stenosis in the mid vessel. 4. Right coronary artery is chronically totally occluded. Distal right coronary artery fills via left to right collaterals. This is unchanged from previous angiography. PTCA STENT OF THE LAD: The stent used was a 2.75 x 12 mm Poca. This still had quite a significant residual. The post-stent dilatation made with a 3.0 and 3.5 high pressure balloon and a 3.5 high pressure balloon was taken to 25 atmospheres. There was still a 40% to 50% residual stenosis. No angiographic evidence of dissection or thrombus. PTCA STENT OF THE LEFT CIRCUMFLEX: The left circumflex was addressed with a 3.0 x 22 mm Poca. Result was 0% residual stenosis. OVERALL IMPRESSION: Successful PTCA stent of the LAD and circumflex. The circumflex going from 75% initial stenosis to 0% residual. The LAD only going to 40% to 50% residual stenosis. This could not be improved even with large high pressure balloons. If this continues to cause angina, the only treatment would be coronary bypass graft surgery. TRANSINT:[id number] Voice Confirmation ID: [id number] DOCUMENT ID: [id number] OPERATIVE REPORT [id number] DIMAS,LES VELASQUEZ MD CC: [id number] DICTATION DATE: 01/04/19 1119 TOOL AND DIE MAKER APPRENTICE: 01/04/19 1224 [facility] [address] [id number]
--- NOTE | ~2019-01-04 | HEMODYNAMI ---
PATIENT:NANNETTE DIMAS MEDICAL RECORD: [id number] : 37 LOCATION:[facility] ADMISSION DATE: 01/04/19 Generatedon:01/04/201911:17 Patient name: NANNETTE DIMAS Patient #: [id number] SSN: DO B: 1935 Date of study: 01/04/2019 Page: Of Hemodynamic Procedure Report Patient Data Patient Demographics Procedure consent was obtained First Name: NANNETTE Gender: Male Last Name: JUDIE : 1935 [facility] Initial: NICOL Age: 83 year(s) Patient #: [id number] Race: Additional ID: [id number] Contact details Address: [address] [place] [address] State: [place] City: [place] Zip code: [address] Past Medical History Allergies: No known allergies Admission Admission Data Admission Date: 01/04/2019 Admission Time: 8:21 Admit Source: Other Procedure Procedure Types Cath Procedure Diagnostic Procedure LHC LHC w/Coronaries Sedation Charges Moderate Sedation up to 15 minutes PCI Procedure Coronary Stent Coronary Stent Initial x2 Procedure Description Procedure Date Procedure Date: 01/04/2019 Procedure Start Time: 10:53 Procedure End Time: 11:17 Procedure Staff Name Function Otoniel Wan MD Performing Physician Martine Dowd RT Monitor Sarah Lunsford RN Nurse Mayco Bedoya RT Scrub Procedure Data Cath Procedure Fluoroscopy Diagnostic fluoroscopy Total fluoroscopy Time: 7.6 time: 7.6 min min Diagnostic fluoroscopy Total fluoroscopy dose: dose: 1637 mGy 1637 mGy Contrast Material Contrast Material Type Amount (ml) Isovue 300 152 Entry Location Entry Primary Successful Side Size Upsize Upsize Entry Closure Ortega ccessful Closure Location (Fr) 1 (Fr) 2 (Fr) Remarks Device Remarks Radial Right 6 Fr Mechanical artery Short Compression Estimated blood loss: 5 ml Diagnostic catheters Device Type Used For End Catheter Placement DIAGNOSTIC [place] 110cm 5 Multi-vessel Fr catheter ([id number]) Angiography DIAGNOSTIC AR2 MOD 5 Fr Right Coronary catheter ([id number]) Angiography Procedure Complications No complications Procedure Medications Medication Administration Route Dosage 0.9% NaCl I.V. 100 ml/hr Oxygen etCO2 Nasal cannula 2 l/min Lidocaine 2% added to field 20 Heparin Flush Bag added to field 2 bags (1000units/500ml NS) Radial Cocktail added to field 1 syringe (Verapomil 2mg/Nitro 400mcg/Heparin 1500units) Versed I.V. 2 mg Fentanyl I.V. 50 mcg Versed I.V. 1 mg Fentanyl I.V. 25 mcg Heparin Bolus I.V. 4000 units Hemodynamics Rest Heart Rate: 73 (bpm) Pressure Samples Time Site Value (mmHg) Purpose Heart Use Rate(bpm) 10:55 LV 93/59,47 Snapshot 76 Snapshots Pre Cath Intra NCS Post Cath Vital Signs Time Heart Resp SPO2 etCO2 NIBP (mmHg) Rhythm Pain Sedation Rate (ipm) (%) (mmHg) Status Level (bpm) 10:41:39 67 13 98 27.8 115/80(98) NSR 0 (11) 10(A) , No pain 10:45:57 75 16 96 23 126/74(112) NSR 0 (11) 10(A) , No pain 10:50:11 74 16 98 19 101/71(81) NSR 0 (11) 10(A) , No pain 10:54:23 76 17 97 22.5 97/67(80) NSR 0 (11) 9(A) , No pain 10:58:35 77 20 98 12.7 80/62(75) NSR 0 (11) 9(A) , No pain 11:02:38 75 16 97 24 96/61(71) NSR 0 (11) 9(A) , No pain 11:06:48 70 16 96 24.8 90/60(73) NSR 0 (11) 9(A) , No pain 11:10:58 74 16 96 17.3 94/59(82) NSR 0 (11) 9(A) , No pain 11:15:06 73 15 96 21 105/67(81) NSR 0 (11) 10(A) , No pain Medications Time Medication Route Dose Verified Delivered Reason Not es Effectiveness by by 10:39:24 0.9% NaCl I.V. 100 Otoniel Smith used for ml/hr Savage Lunsford casino controller 10:39:32 Oxygen etCO2 2 l/min Otoniel Sarah used for Nasal Savage Lunsford procedure cannula RN 10:39:36 Lidocaine 2% added 20ml Otonielsummer Frederick for local to vial Savage Wan MD anesthetic field 10:39:41 Heparin Flush added 2 bags Otoniel Millerrey used for Bag to Savage Wan MD procedure (1000units/500ml field NS) 10:43:21 Radial Cocktail added 1 Otoniel Otoniel used for (Verapomil to syringe Savage Wan MD procedure 2mg/Nitro field 400mcg/Heparin 1500units) 10:47:30 Versed I.V. 2 mg Otoniel Sarah for sedation Savage Lunsford RN 10:47:35 Fentanyl I.V. 50 mcg Otoniel Sarah for sedation Savage Lunsford RN 10:52:08 Versed I.V. 1 mg Otoniel Sarah for sedation Savage Lunsford RN 10:52:13 Fentanyl I.V. 25 mcg Otoniel Sarah for sedation Savage Lunsford RN 11:02:54 Heparin Bolus I.V. 4000 Otoniel Sarah for onelle ified units Savage Lunsford anticoagulation with Dr. YSABEL Wan Procedure Log Time Note 10:28:38 Admit Source: Other 10:29:05 Diagnostic Cath status Elective 10:29:08 Martine Dowd RT(R) sent for patient. Start room use. 10:29:10 Time tracking: Regular hours (M-F 7:00 - 5:00) 10:29:16 Plan of Care:Hemodynamics will remain stable., Cardiac rhythm will remain stable., Comfort level will be maintained., Respiratory function will remain adequate., Patient/ family verbilizes understanding of procedure., Procedure tolerated without complication., Recovers from procedure without complications.. 10:38:50 Patient received from Pre/Post Procedure Room to CCL 1 Alert and oriented. Tansferred to table in Supine position. 10:38:51 Warm blankets applied, and nat hugger turned on for patient comfort. 10:38:53 Correct patient and procedure confirmed by team. 10:38:57 Signed procedure consent form obtained from patient. 10:38:59 ECG and BP/O2 sat monitors applied to patient. 10:39:24 0.9% NaCl 100 ml/hr I.V. was administered by Sarah Lunsford RN; used for procedure; 10:39:32 Oxygen 2 l/min etCO2 Nasal cannula was administered by Sarah Lunsford RN; used for procedure; 10:39:36 Lidocaine 2% 20ml vial added to field was administered by Otoniel Wan MD; for local anesthetic; 10:39:41 Heparin Flush Bag (1000units/500ml NS) 2 bags added to field was administered by Otoniel Wan MD; used for procedure; 10:39:53 H&P Date Dictated: 12/15/2018 Within 30 days and on chart.. 10:39:55 Pre-procedure instructions explained to patient. 10:40:00 Pre-op teaching completed and patient verbalized understanding. 10:40:02 Family in patients room. 10:40:06 Patient NPO since Midnight. 10:40:16 Vital chart was started 10:40:23 Baseline sample Acquired. 10:40:31 Rhythm: sinus rhythm 10:40:36 Full Disclosure recording started 10:40:46 Is the patient allergic to Iodine/contrast media? No. 10:40:49 Is patient on blood thinner?Yes 10:41:03 ACC The patient was administered the following blood thiners within the last 24 hours: ACCPlavix 10:41:10 Patient diabetic? No. 10:41:17 ----Pre-sedation anethsthesia assessment.---- 10:41:22 Snore? No 10:41:25 Sleep apnea? No 10:41:29 Previous problem with sedation/anesthesia? No ? 10:41:43 Deviated septum? No 10:41:45 Opens mouth fully? Yes 10:41:48 Sticks out tongue? Yes 10:41:56 Dentures? No ? 10:41:58 Airway obstruction? No ? 10:42:02 Airway obstruction? No ? 10:43:21 Radial Cocktail (Verapomil 2mg/Nitro 400mcg/Heparin 1500units) 1 syringe added to field was administered by Otoniel Wan MD; used for procedure; 10:44:50 Pre procedure: right dorsailis pedis pulse 1+ Palpable, but thready & weak; easily obliterated 10:44:51 Pre procedure: left dorsailis pedis pulse 1+ Palpable, but thready & weak; easily obliterated 10:44:53 Patient pain scale 0/10 ?. 10:44:59 IV patent on arrival in left forearm with 0.9% NaCl at KVO. 10:45:01 Lab results completed and on chart. 10:45:05 Right Radial & Right Groin area was prepped with chlora-prep and draped in sterile fashion 10:45:06 Alarms reviewed by R. N. 10:45:06 Sharps counted by scrub and verified by R.N. 10:46:50 Physician arrived 10:46:51 --------ALL STOP TIME OUT------ 10:46:51 Final Timeout: patient, procedure, and site verified with staff and physician. All members of the team are in agreement. 10:46:53 Right Radial & Right Groin site verified by team. 10:46:57 Maximum allowable Isovue 300 dose 300ml. Physician notified. (300ml for normal creatinines. For patients with creatinine of 1.7 or higher multiply weight(kg) x 5 divided by creatinine.) 10:47:02 Fire Safety Assessment: A--An alcohol-based skin anteseptic being used preoperatively., C--Open oxygen or nitrous oxide is being used., D--An ESU, laser, or fiber-optic light is being used. 10:47:05 Physical assessment completed. ASA score P 2 - A patient with mild systemic disease as per Otoniel Wan MD. 10:47:09 Sedation plan: IV Moderate Sedation Medication:Versed, Fentanyl 10:47:15 Use device set Radial Dx or PCI 10:47:16 ACIST Syringe (02447) opened to sterile field. 10:47:16 Medline Cath Pack ([id number]) opened to sterile field. 10:47:16 Bag Decanter () opened to sterile field. 10:47:17 DIAGNOSTIC WIRE .035 260cm J wire (059206) opened to sterile field. 10:47:17 ACIST Hand Control (00091) opened to sterile field. 10:47:18 ACIST Manifold (68967) opened to sterile field. 10:47:18 Tegaderm 4 x 4 (1626W) opened to sterile field. 10:47:19 SHEATH 6FR Slender (801060) opened to sterile field. 10:47:20 MBrace Wrist Support ([id number]) opened to sterile field. 10:47:30 Versed 2 mg I.V. was administered by Sarah Lunsford RN; for sedation; 10:47:35 Fentanyl 50 mcg I.V. was administered by Sarah Lunsford RN; for sedation; 10:51:50 Zero performed for pressure channel P1 10:52:08 Versed 1 mg I.V. was administered by Sarah Lunsford RN; for sedation; 10:52:13 Fentanyl 25 mcg I.V. was administered by Sarah Lunsford RN; for sedation; 10:53:27 Procedure started. 10:53:30 Local anesthetic to right radial artery with Lidocaine 2% by Otoniel Wan MD.INITIAL ACCESS ONLY 10:53:49 A 6 Fr Short sheath was inserted into the Right Radial artery 10:54:33 A DIAGNOSTIC [place] 110cm 5 Fr catheter ([id number]) was advanced over the wire and used for Multi-vessel Angiography. 10:55:43 LV hemodynamics recorded. 10:55:45 LV gram done using VIGIL 10:55:47 Injector settings: Ml/sec: 5, Volume: 15, 10:55:53 EF : 60 % 10:57:17 Catheter removed. 10:58:20 A DIAGNOSTIC AR2 MOD 5 Fr catheter ([id number]) was advanced over the wire and used for Right Coronary Angiography. 10:58:47 RCA angiography performed. 10:58:56 Injector settings: Ml/sec: 3, Volume: 6, 10:59:19 Catheter removed. 10:59:22 GUIDE 6FR XB 3.5 catheter (38123823) opened to sterile field. 10:59:49 6 Fr xb 3.5 guide catheter was inserted over the wire 11:00:39 LCA angiography performed. 11:00:41 Injector settings: Ml/sec: 3, Volume: 6, 11:01:32 INFLATOR Merit BasixCompak (KW5227) opened to sterile field. 11:01:33 CHOICE PT Extra Support 182cm wire ([id number]) opened to sterile field. 11:01:45 choice pt wire advanced. 11:02:27 Wire advanced across lesion. 11:02:54 Heparin Bolus 4000 units I.V. was administered by Sarah Lunsford RN; for anticoagulation; verified with Dr. Wan 11:04:27 Place stent Inflation Number: 1 A ROSY RX 2.75 x 12 stent ([id number]) was prepped and advanced across the Mid LAD. The stent was deployed at 23 BLANCA for 0:10 (min:sec). 11:04:45 Stent catheter was removed intact over wire. 11:06:39 Inflate balloon Inflation number: 2 A NC EUPHORA 3.0 x 12 balloon ([id number]) was prepped and advanced across the Mid LAD, then inflated to 24 BLANCA for 0:10 (min:sec). 11:07:12 Balloon removed over the wire. 11:09:14 Inflate balloon Inflation number: 3 A NC EUPHORA 3.5 x 12 balloon ([id number]) was prepped and advanced across the Mid LAD, then inflated to 23 BLANCA for 0:10 (min:sec). 11:10:09 Balloon removed over the wire. 11:11:42 Wire redirected to lcx. 11:12:22 Wire advanced across lesion. 11:14:51 Place stent Inflation Number: 1 A ROSY RX 3.0 x 22 stent ([id number]) was prepped and advanced across the Mid CX. The stent was deployed at 17 BLANCA for 0:10 (min:sec). 11:15:25 Stent catheter was removed intact over wire. 11:15:26 Wire removed. 11:15:26 Guide catheter removed. 11:15:36 TR BAND Standard ([id number]) opened to sterile field. 11:15:53 Sheath removed intact; hemostasis achieved with Mechanical Compression to the Right Radial artery. 11:15:55 Procedure ended.(Physican Out) 11:16:06 Fluoroscopy time 07.60 minutes. 11:16:10 Flurop Dose total: 1637 11:16:10 Fluoroscopy dose: 1637 mGy 11:16:16 Contrast amount:Isovue 300 152ml. 11:16:28 Sharps counted by scrub and verified by R.N. 11:16:31 TR band inflated with 10cc of air. 11:16:33 Insertion/operative site no bleeding no hematoma. 11:16:35 Post Procedure Pulses reassessed and unchanged 11:16:38 Post procedure rhythm: unchanged. 11:16:41 Estimated blood loss: 5 ml 11:16:43 Post procedure instruction explained to patient.Patient verbalizes understanding. 11:16:44 Patient needs reinforcement of post procedure teaching. 11:17:03 Procedure type changed to Cath procedure, Diagnostic procedure, LHC, LHC w/Coronaries, Sedation Charges, Moderate Sedation up to 15 minutes, PCI procedure, Coronary Stent, Coronary Stent Initial x2 11:17:04 Procedure and supply charges have been captured, reviewed, submitted and are correct. 11:17:09 Procedure Complication : No complications 11:17:11 Vital chart was stopped 11:17:12 See physician's report for complete and final results. 11:17:14 Report given to Pre/Post Procedure Room. 11:17:16 Patient transfered to Pre/Post Procedure Room with Stretcher. 11:17:18 Procedure ended. 11:17:18 Full Disclosure recording stopped 11:17:25 ACC-PCI Only Patient was given prescriptions, or instructed by Otoniel Wan MD to start/continue the following medications upon discharge: Plavix 11:17:27 End room use (Document Last) Intervention Summary Intervention Notes Time ActionType Lesion and Equipment Used Action# Pressure Duration Attributes 11:04:27 Place stent Mid LAD ROSY RX 2.75 x 1 23 00:10 12 stent ([id number]) 11:06:39 Inflate Mid LAD NC EUPHORA 3.0 2 24 00:10 balloon x 12 balloon ([id number]) 11:09:14 Inflate Mid LAD NC EUPHORA 3.5 3 23 00:10 balloon x 12 balloon ([id number]) 11:14:51 Place stent Mid CX ROSY RX 3.0 x 1 17 00:10 22 stent ([id number]) Device Usage Item Name Manufacture Quantity Catalog Number Hospital Part Current M inimal Lot# / Charge Number Stock Stock Serial# Code ACIST Syringe Acist 1 27272 266346 330572 434070 2 0 (97137) Medical Systems Inc Medline Cath Medline 1 [id number] 837117 25218 125480 5 Pack ([id number]) Bag Decanter Microtek 1 805317 50034 533650 5 () Medical Inc. DIAGNOSTIC St Roby 1 949739 030643 118722 958859 3 0 WIRE .035 260cm J wire (447966) ACIST Hand Acist 1 16177 185747 350976 006720 5 Control Medical (92839) Systems Inc ACIST Manifold Acist 1 35625 349948 443493 690035 5 (45184) Medical Systems Inc Tegaderm 4 x 4 3M 1 1626W 159377 332507 064501 5 (1626W) SHEATH 6FR Terumo 1 [id number] 452905 612040 133467 5 Slender (80-1060) MBrace Wrist Advanced 1 140-0250-00 114972 98939 017669 5 Support Vascular (226555627) Dynamics DIAGNOSTIC Terumo 1 40-1113 708566 719809 056565 5 [place] 110cm 5 Fr catheter (486021) DIAGNOSTIC AR2 Cardinal 1 [id number] 990370 416395 872814 2 0 MOD 5 Fr Health catheter (929289M) GUIDE 6FR XB Cardinal 1 [id number] 717649 640882 381770 2 3.5 catheter Health (95954860) INFLATOR Merit Merit 1 VN5121 145728 070633 916843 1 5 [place] [employer]CS (AL6686) CHOICE PT [place] 1 [id number] 946839 752064 511523 5 Extra Support Scientific 182cm wire (8402471L9) ROSY RX 2.75 x Medtronic 1 [id number] 925536 7074185 255407 5 [id number] 12 stent ([id number]) NC EUPHORA 3.0 Medtronic 1 [id number] 189120 508018 297552 1 [id number] x 12 balloon ([id number]) NC EUPHORA 3.5 Medtronic 1 [id number] 959541 077902 844428 1 [id number] x 12 balloon ([id number]) ROSY RX 3.0 x Medtronic 1 [id number] 357035 6222896 603290 5 [id number] 22 stent ([id number]) TR BAND Terumo 1 [id number] 406623 350221 249618 4 0 Standard ([id number]) Signature Audit [place] Stage Time Signature Unsigned Intra-Procedure 01/04/2019 Martine Dowd 11:17:55 AM RT(R) Signatures Monitor : Martine Dowd RT Signature : Date : Time : [facility] [address] [place] [address]
[~2019-01-04 08:21] MED LIST changes: -PRAVACHOL40 MG PO
[2019-01-04 09:05] VITALS: BP 137/79; Ht 174 cm; Wt 90.9 kg
[2019-01-04 09:10] LABS: BASOPHILS 0.4 % (0-2); EOSINOPHILS 3.2 % (0-7); HEMATOCRIT 40.4 % (42.0-54.0); IMMATURE GRANULOCYTES 0.2 % (0-5); LYMPHOCYTES 19.8 % (15-50); MCH 30.5 pg (26.0-34.0); MCHC 34.7 g/dL (31.0-37.0); MEAN PLATELET VOLUME 8.5 fL (7.4-10.4); MONOCYTES 9.8 % (2-11); NEUTROPHILS 66.6 % (40-80); PLATELET COUNT 173 10x3/uL (130-400); RBC 4.59 10x6/uL (4.20-6.10); RDW 13.5 % (11.5-14.5); WBC 5.3 10x3/uL (4.8-10.8)
[2019-01-04 09:20] LABS: ANION GAP 11.6 mmol/L (8-16); CALCIUM 8.9 mg/dL (8.5-10.1); CARBON DIOXIDE 26.4 mmol/L (21.0-32.0); CREATININE - SERUM 1.4 mg/dL (0.6-1.3)
[2019-01-04] MEDS ORDERED: PRAVACHOL40 MG PO (13:30)
== END 2019-01-04 15:43 | disposition home or self-care (01) ==
LOC: D.CATH 08:21
PROVIDERS: ATTEND Internal Medicine Interventional Cardiology
DX: I25.119 Atherosclerotic heart disease of native coronary artery with unspecified angina pectoris (principal); I25.82 Chronic total occlusion of coronary artery; Z01.812 Encounter for preprocedural laboratory examination
CPT/HCPCS: 93458; C9600 ×2